=== PATIENT | male | born 1945 | race Caucasian/White ===

== ENCOUNTER 2021-05-28 12:55 | Inpatient (IN) | payer MEDICARE, SELFPAY ==
[2021-05-27] VITALS (13 sets, daily range): BP systolic 87–156; BP diastolic 46–82; PULSE 48–109; RESP 15–21; TEMP 37.3–37.7; O2SAT 96–100; BMI 34.0
--- NOTE | 2021-05-27 10:08 | WPDCNINT ---
Assessment and Plan Assessment and plan (1) Sepsis: Code(s): A41.9 - Sepsis, unspecified organism Status: Acute Assessment and Plan: on review of his chart and physician sign-out it appears the patient presented with mixed picture of sepsis and DKA he had elevated lactic acid level elevated WBC and infiltraes on his chest x-ray patient was given vancomycin and Rocephin in the ER and culture sent I will continue vancomycin and cefepime continue IV fluids he has received adequate amount IV bolus and currently not requiring any vasopressors check lactic acid level (2) DKA (diabetic ketoacidosis): Code(s): E11.10 - Type 2 diabetes mellitus with ketoacidosis without coma Status: Acute Assessment and Plan: patient has received IV fluid bolus and insulin bolus in the ED continue IV insulin infusion serial BMPs with 1st now NPO except water (3) Acute kidney injury superimposed on CKD: Code(s): N17.9 - Acute kidney failure, unspecified; N18.9 - Chronic kidney disease, unspecified Status: Acute Assessment and Plan: baseline creatinine is unknown but patient presented with creatinine of 4.26 which has improved 3.7 this morning as per labs from outside hospital monitor urine output creatinine and electrolytes renal ultrasound CK was normal (4) COVID-19: Code(s): U07.1 - COVID-19 Status: Acute Assessment and Plan: currently on room air hence will hold dexamethasone not a candidate for remdesivir due to his renal failure isolation (5) Pneumonia: Code(s): J18.9 - Pneumonia, unspecified organism Status: Acute Assessment and Plan: patient chest x-ray on presentation showed bilateral infiltrates and he was recently diagnosed with COVID-19 currently on room air hence does not meet criteria for treatment for COVID-19 but he will be treated for bacterial infection culture sent in the ED vancomycin and cefepime (6) Nausea: Code(s): R11.0 - Nausea Status: Acute Assessment and Plan: p.r.n. Zofran (7) Atrial flutter: Code(s): I48.92 - Unspecified atrial flutter Status: Acute Assessment and Plan: patient has chronic AFib and is not on any anticoagulation as per patient's daughter check EKG check serial troponin add aspirin (8) Confusion: Code(s): R41.0 - Disorientation, unspecified Status: Acute Assessment and Plan: pressure patient has history of dementia. he is awake alert but not oriented and appears to have poor memory his ammonia was elevated I will repeat at this time also check TSH his head CT was negative at outside hospital (9) Delirium: Code(s): R41.0 - Disorientation, unspecified Status: Acute Assessment and Plan: likely delirium from sepsis and DKA check ammonia and TSH head CT was negative at outside hospital Additional Plan DVT prophylaxis - Lovenox Stress ulcer prophylaxis - Nutrition - NPO at this time Code Status - Full Code . patient unable to participate. Daughter will fax his advance directive to ICU. full code for now reviewed all the paperwork obtained from [facility], discussed case with transferring physician, called and spoke to patient's daughter and obtain additional information. I also updated her with patient's current status and our treatment plan.. I answered all her questions Total Critical Care Time - 45 minutes Due to a high probability of clinically significant, life threatening deterioration, the patient required my highest level of preparedness to intervene emergently and I personally spent this critical care time directly and personally managing the patient. This critical care time included obtaining a history; examining the patient; pulse oximetry; ordering and review of studies; arranging urgent treatment with development of a management plan; evaluation of patient's response to treatment;
[2021-05-27 10:49] LABS: Basophils Percent Auto 0.1 % (0.2-1.2); Hematocrit 31.6 % (42.0-52.0); Hemoglobin 11.1 g/dL (14.0-18.0); Immature Granulocyte Absolute 0.24 K/mm3 (0.00-0.031); Immature Granulocyte Percent A 1.6 % (0-0.5); Lymphocytes Absolute Auto 0.87 K/mm3 (0.9-3.2); Lymphocytes Percent Auto 5.8 % (18.3-44.2); Mean Corpuscular HGB Conc 35.1 g/dl (32-36); Mean Corpuscular Hemoglobin 32.2 pg (26-34); Mean Corpuscular Volume 91.6 fl (80-100); Mean Platelet Volume 8.5 fl (7.4-10.4); Monocytes Absolute Auto 0.9 K/mm3 (0.1-0.6); Monocytes Percent Auto 6.1 % (2.6-8.5); Neutrophils Absolute Auto 12.9 K/mm3 (1.3-6.7); Neutrophils Percent Auto 86.4 % (45.5-73.1); Platelet Count Result 256 k/mm3 (150-375); Red Blood Count 3.45 M/mm3 (4.6-6.20); Red Cell Distribution Width 12.8 % (11.5-14.5)
[2021-05-27 11:00] LABS: Ammonia < 9 umol/L (9-30); Lactic Acid Reflex 1.2 mmol/L (0.7-2.1)
[2021-05-27 11:01] LABS: Anion Gap 7 mmol/L (8-16); Blood Urea Nitrogen 58 mg/dL (9-20); Calcium 9.7 mg/dL (8.4-10.2); Carbon Dioxide 29 mmol/L (22-30); Chloride 106 mmol/L (98-107); Estimated Glomerular Filt Rate 23; Glucose 121 mg/dL (65-110); Magnesium 2.3 mg/dL (1.6-2.3); Phosphorus 2.4 mg/dL (2.5-4.5); Potassium 4.1 mmol/L (3.4-5.0); Sodium 142 mmol/L (137-145)
[2021-05-27 11:01] LABS: Glucose Point of Care 102 mg/dl (65-105)
[2021-05-27 11:10] LABS: Hemoglobin A1C 9.4 % (<5.7)
[2021-05-27 11:19] LABS: Add Urine Microscopic? YES; Appearance Urine Cloudy (Clear); Bacteria Urine Trace /hpf; Bilirubin Urine Negative (Negative); Blood Urine 3+ (Negative); Color Urine Yellow (Yellow); Glucose Urine UA 3+ mg/dL (Negative); Ketones Urine 1+ mg/dL (Negative); Leukocyte Esterase Ur Negative LEU/UL (NEGATIVE); Mucus Urine Rare /lpf; Nitrate Urine Negative (Negative); Protein Urine 1+ mg/dL (Negative); Squamous Epithelial Cell Urine Occasional /hpf (Few); Urobilinogen Urine Negative mg/dL (<2.0)
--- NOTE | 2021-05-27 11:20 | PC.NURSE ---
This patient, Bernabe Juan, was admitted to Intensive Care Unit-8. Patient/family oriented to hospital policies and general routines including ID bracelet, bed and alarms, visiting hours, pain management, procedures, bathroom and other care routines, personal items, smoking policy, room service/diet, and visiting hours. Information on how to activate the Rapid Response Team has been discussed. Patient/Family are encouraged to report perceived risks to care and to ask questions if they do not understand what they are told or what they should do.
--- NOTE | 2021-05-27 11:38 | PM.IMHP ---
H&P: HPI History of Present Illness Date/Time: 05/27/21 11:38 Chief Complaint: Transferred From [facility] for DKA, sepsis Narrative: History was taken from the patient and transfer notes. According to the transfer notes, patient and patient family, patient has received his COVID vaccination in October and has recently be diagnosed with COVID and was getting close observation as an outpatient at home. No medication was given for this COVID exposure. Patient went to [place] emergency room yesterday with complaints of having high sugar. Patient was diagnosed with sepsis and DKA. Patient was given IV antibiotics vancomycin and IV fluid bolus was given. Patient was also found to be in having acute renal insufficiency. Patient also have a history of atrial fibrillation and was not on any anticoagulation at home. However home medications are not available at present time for review. At present time patient is in ICU bed 8 lying comfortably and is not in any acute distress. Patient denies any shortness of breath or chest pain. Patient denies any nausea vomiting. Patient denies any fever or chills. Patient complains of having generalized weakness. Daughter was contacted by ICU attending and notified the patient is in [facility] ICU. Review of Systems Review of Systems: All systems reviewed & are unremarkable except as noted in HPI and below ( the history and physical examination.) [facility] Past Medical History Medical History Atrial flutter Diabetes mellitus DKA (diabetic ketoacidosis) Social History Social History Smoking status: Former smoker Alcohol intake: never Substance use: never Spiritual care concerns: No Meds Home Medications and Allergies Home Medications Medication Instructions Recorded Confirmed Type apixaban [Eliquis] 5 mg PO BID 05/27/21 05/27/21 History bethanechol chloride 10 mg PO TID 05/27/21 05/27/21 History brimonidine-timolol [Combigan] 1 drp EACH EYE Q12H 05/27/21 05/27/21 History carvedilol [Coreg] 3.125 mg PO Q12H 05/27/21 05/27/21 History empagliflozin [Jardiance] 10 mg PO DAILY 05/27/21 05/27/21 History furosemide [Lasix] 20 mg PO DAILY 05/27/21 05/27/21 History insulin lispro [Humalog U-100 See Rx Instructions .ROUTE .COMPLEX 05/27/21 05/27/21 History Insulin] levothyroxine 150 mcg PO DAILY 05/27/21 05/27/21 History lisinopril 5 mg PO DAILY 05/27/21 05/27/21 History pantoprazole [Protonix] 40 mg PO QAM 05/27/21 05/27/21 History rosuvastatin [Crestor] 40 mg PO DAILY 05/27/21 05/27/21 History tamsulosin 0.4 mg PO DAILY 05/27/21 05/27/21 History Allergies Allergy/AdvReac Type Severity Reaction Status Date / Time No Known Allergies Allergy Verified 05/27/21 10:41 Exam Narrative: General: Pt is alert awake and in NAD Lungs/Chest: Trachea central Clear BS B/L, No crackles or wheezing. Cardiac: RRR. Normal S1 S2. No murmurs Circulation: Pedal pulses are intact and symmetrical. Abdomen: Normal bowel sounds.. Soft. NT. ND. Extremities: No clubbing, cyanosis or edema. Warm left femoral central venous catheter : Eng in place Neurologic: Follows commands. Moves all 4 extremities PERRL alert oriented times 0 Skin: No Rash H&P: Results Labs Labs: Short CBC 05/27/21 Range/Units 10:35 WBC 15.0 H (4.5-10.0) K/mm3 Hgb 11.1 L (14.0-18.0) g/dL Hct 31.6 L (42.0-52.0) % Plt Count 256 (150-375) k/mm3 BMP 05/27/21 10:35 Sodium 142 Potassium 4.1 Chloride 106 Carbon Dioxide 29 BUN 58 H Creatinine 2.70 H Glucose 121 H Calcium 9.7 Cardiac Enzymes 05/27/21 Range/Units 10:40 Troponin I 1.410 H* (0.000-0.034) ng/mL Urine 05/27/21 Range/Units 10:50 Urine Color Yellow (Yellow) Urine Appearance Cloudy H (Clear) Urine pH 5.0 (5.0-9.0) Ur Specific [place] 1.010 (1.001-1.035) Urine Protein
[2021-05-27] MEDS: SODIUM CHLORIDE 0.45% 1,000 ML 100 ML IV CONT ×2 (13:23→22:49)
[2021-05-27] MEDS: INSULIN GLARGINE (*BKC) 100 UNITS/ML 15 UNITS SUB-Q (13:26)
[2021-05-27] MEDS: carvediloL 3.125 MG TABLET PO ×2 (13:29→20:04)
[2021-05-27] MEDS: PANTOPRAZOLE 40 MG TABLET PO (13:29)
[2021-05-27] MEDS: ROSUVASTATIN 10 MG TABLET 40 MG PO (13:29)
[2021-05-27] MEDS: BETHANECHOL CHLORIDE 10 MG TABLET PO (13:30)
[2021-05-27] MEDS: TAMSULOSIN HCL 0.4 MG CAPSULE PO (13:30)
[2021-05-27 13:41] LABS: Anion Gap 11 mmol/L (8-16); Blood Urea Nitrogen 56 mg/dL (9-20); Calcium 9.3 mg/dL (8.4-10.2); Carbon Dioxide 26 mmol/L (22-30); Chloride 106 mmol/L (98-107); Estimated CRCL calculation 32 ml/min; Estimated Glomerular Filt Rate 26; Glucose 166 mg/dL (65-110); Potassium 4.5 mmol/L (3.4-5.0); Sodium 143 mmol/L (137-145)
[2021-05-27] MEDS: CENTRAL LINE FLUSH 10 ML IV PUSH ×3 (13:55→20:15)
[2021-05-27 14:01] LABS: Glucose Point of Care 157 mg/dl (65-105)
[2021-05-27] MEDS: APIXABAN 5 MG TABLET PO (16:38)
[2021-05-27] MEDS: INSULIN ASPART (*BKC) 100 UNITS/ML SUB-Q ×3 (16:39→23:53)
[2021-05-27 16:47] LABS: Glucose Point of Care 305 mg/dl (65-105)
[2021-05-27] MEDS: LORazepam INJ (*CRX) 2 MG/ML VIAL 1 MG IV PUSH (17:36)
[2021-05-27] MEDS: dexmedeTOMIDine 400 MCG/100 ML 400 MCG/100 ML BAG 6 MCG IV CONT (17:55)
[2021-05-27 18:08] LABS: Anion Gap 16 mmol/L (8-16); Blood Urea Nitrogen 53 mg/dL (9-20); Calcium 8.9 mg/dL (8.4-10.2); Carbon Dioxide 20 mmol/L (22-30); Chloride 104 mmol/L (98-107); Estimated CRCL calculation 37 ml/min; Estimated Glomerular Filt Rate 31; Glucose 307 mg/dL (65-110); Potassium 4.2 mmol/L (3.4-5.0); Sodium 140 mmol/L (137-145)
[2021-05-27] MEDS: BRIMONIDINE TARTRATE 0.2% OP SOLN 5 ML BTL 1 DROP EACH EYE (20:04)
[2021-05-27] MEDS: TIMOLOL MALEATE 0.5% OP SOLN 5 ML BOTTLE 1 DROP EACH EYE (20:07)
[2021-05-27 20:31] LABS: Glucose Point of Care 258 mg/dl (65-105)
[2021-05-27 22:11] LABS: Anion Gap 9 mmol/L (8-16); Blood Urea Nitrogen 50 mg/dL (9-20); Calcium 9.3 mg/dL (8.4-10.2); Carbon Dioxide 26 mmol/L (22-30); Chloride 105 mmol/L (98-107); Estimated CRCL calculation 35 ml/min; Estimated Glomerular Filt Rate 29; Glucose 241 mg/dL (65-110); Sodium 140 mmol/L (137-145)
[2021-05-27] MEDS: dexmedeTOMIDine 400 MCG/100 ML 400 MCG/100 ML BAG 12 MCG IV CONT (23:51)
[2021-05-28] VITALS (16 sets, daily range): BP systolic 104–175; BP diastolic 54–91; PULSE 36–71; RESP 14–22; TEMP 35.7–36.6; O2SAT 97–100; BMI 35.2
[2021-05-28] LABS: Glucose Point of Care 214 mg/dl (65-105)
--- NOTE | 2021-05-28 | ECHO_ITS ---
Patient Info Name: Bernabe Juan Age: 75 years : 1945 Gender: Male Ht: 74 in Wt: 260 lbs BSA: 2.52 m2 HR: 52 bpm BP: 153 / 88 mmHg Heart Rhythm: Atrial Fibrillation Exam Date: 05/28/2021 8:17 AM Exam Location: [facility] Pulmonary Patient Status: Inpatient Admit Date: 05/27/2021 Staff Ordering Physician: Brad Patterson MD Fitness/Wellness Director: Ronan Vasquez, DURAN, RT Attending Provider: Layo Rodriguez MD Exam Type: CA echo doppler color flow Study Info Indications R65.20 - Severe sepsis without septic shock Complete two-dimensional, color flow and Doppler transthoracic echocardiogram is performed. Strain analysis performed. Summary 1. Complete two-dimensional, color flow and Doppler transthoracic echocardiogram is performed. 2. Left ventricular chamber dimension is mildly enlarged. 3. Left ventricular systolic function is mildly reduced, estimated at 40-45%. 4. Left atrial chamber dimension is moderately enlarged. 5. There is mild aortic valve sclerosis. 6. Small amount of both mitral and tricuspid valve regurgitation. Left Ventricle Left ventricular chamber dimension is mildly enlarged. Left ventricular systolic function is mildly reduced, estimated at 40-45%. The left ventricular diastolic function is indeterminate. Right Ventricle Right ventricular chamber dimension is normal. Left Atria Left atrial chamber dimension is moderately enlarged. Right Atria Right atrial chamber dimension is mildly enlarged. Aortic Valve The aortic valve is trileaflet. There is mild aortic valve sclerosis. Pulmonic Valve The pulmonic valve is not well visualized. Mitral Valve The mitral valve has normal leaflets. There is mild mitral valve regurgitation. The mitral valve annulus is mildly calcified. Tricuspid Valve The tricuspid valve leaflets are normal. There is mild tricuspid valve regurgitation. Pericardium/Pleural The pericardium appears normal. Aorta The aortic root size at the sinus of Valsalva is normal. Left Ventricular Outflow Tract Name Value Normal LVOT Doppler LVOT Peak Gradient 1 mmHg LVOT Mean Gradient 1 mmHg LVOT VTI 16 cm LVOT VTI/AV VTI Ratio 0.8 Mitral Valve Name Value Normal MV Doppler MV Decel [place] 169 cm/s2 MV PHT 122 ms MV Area (PHT) 1.8 cm2 4.0-5.0 MV Diastolic Function MV E Peak Velocity 71 cm/s MV A Peak Velocity 41 cm/s MV E/A 1.8 MV Decel Time 420 ms MV Annular TDI MV E/e' (Septal) 12.1 <=8.0 MV E
--- NOTE | ~2021-05-28 | XR_ITS ---
EXAMINATION: Consultation XR EXAM DATE: 05/27/2021 11:16 INDICATION: Outside consultation requested for imaging including a portable chest x-ray and noncontra st head CT. Both have time stamp of 05/26/2021, 3:28 p.m. Portable chest x-ray demonstrates mild cardiomegaly and small amount of left basilar atelectasis or p neumonia. Noncontrast head CT demonstrates slightly higher than expected density throughout the CSF spaces, yue tricles and subarachnoid spaces. Uncertain whether this could be something technical with equipment I am unfamiliar with, with other possibilities including recent myelogram, proteinaceous fluid (from i nfection, inflammatory process or old subarachnoid blood products). Mild microangiopathy and moderate cerebral atrophy. No obstructive hydrocephalus, evidence of brain mass, acute extra-axial collection or intracranial hemorrhage. Reviewed, dictated and finalized at location A.
--- NOTE | ~2021-05-28 | US_ITS ---
EXAMINATION: US renal BI DATE: 05/27/2021 12:43 INDICATION: Acute renal insufficiency TECHNIQUE: Multiple ultrasound grayscale images of the kidneys were obtained. COMPARISON: None. FINDINGS: The right kidney measures 11.8 x 5.8 x 6.0 cm. The left kidney measures 11.2 x 4.9 x 6.1 cm. The kidn eys demonstrate normal echogenicity. There is approximately 2.4 cm subtle hypoechoic region in the co rtex of the lower pole of the right kidney which on cine images appears most likely related to some s hadowing artifact resulting nodule cannot be absolutely excluded. There is no hydronephrosis in eithe r kidney. No stones identified. The bladder is nonvisualized, likely decompressed with a Eng mansoor ter reportedly in place.. IMPRESSION: 1. No hydronephrosis. 2. Likely artifactual 2.4 cm region of decreased cortical echogenicity at the lower pole of the right kidney but would recommend further evaluation with pre and postcontrast MRI or CT to exclude a less likely solid nodule which if confirmed would be concerning for renal cell carcinoma. Reviewed, dictated and finalized at location A. IMPRESSION: 1. No hydronephrosis. 2. Likely artifactual 2.4 cm region of decreased cortical echogenicity at the l ower pole of the right kidney but would recommend further evaluation with pre a nd postcontrast MRI or CT to exclude a less likely solid nodule which if confir med would be concerning for renal cell carcinoma.
--- NOTE | ~2021-05-28 | XR_ITS ---
XR chest 1V portable 05/30/2021 08:57 Indication: Pneumonia Procedure: AP portable chest Comparison: 05/26/2021 Findings: Interval progression of patchy bilateral airspace disease, consistent with pneumonia. No si gnificant effusion. No pneumothorax. No acute osseous abnormality. Impression: 1: Interval progression of patchy bilateral pneumonia. Reviewed, dictated and finalized at location A. Impression: 1: Interval progression of patchy bilateral pneumonia.
[2021-05-28] MEDS: CENTRAL LINE FLUSH 10 ML IV PUSH ×3 (04:31→20:43)
[2021-05-28 04:47] LABS: Glucose Point of Care 180 mg/dl (65-105)
[2021-05-28 04:52] LABS: Hematocrit 32.9 % (42.0-52.0); Hemoglobin 11.5 g/dL (14.0-18.0); Mean Corpuscular Hemoglobin 32.5 pg (26-34); Mean Corpuscular Volume 92.9 fl (80-100); Mean Platelet Volume 8.8 fl (7.4-10.4); Platelet Count Result 234 k/mm3 (150-375); Red Blood Count 3.54 M/mm3 (4.6-6.20); Red Cell Distribution Width 12.9 % (11.5-14.5); White Blood Count 15.9 K/mm3 (4.5-10.0)
[2021-05-28 05:07] LABS: Alanine Aminotransferase 23 U/L (4-50); Albumin Level 3.1 g/dL (3.5-5.1); Alkaline Phosphatase 129 U/L (38-126); Anion Gap 9 mmol/L (8-16); Aspartate Amino Transferase 56 U/L (17-59); Bilirubin,Total 0.5 mg/dL (0.2-1.3); Blood Urea Nitrogen 44 mg/dL (9-20); Calcium 9.1 mg/dL (8.4-10.2); Carbon Dioxide 28 mmol/L (22-30); Chloride 103 mmol/L (98-107); Estimated CRCL calculation 41 ml/min; Estimated Glomerular Filt Rate 35; Glucose 207 mg/dL (65-110); Magnesium 2.2 mg/dL (1.6-2.3); Sodium 140 mmol/L (137-145)
[2021-05-28] MEDS: LEVOTHYROXINE SODIUM 150 MCG TABLET PO (06:15)
[2021-05-28] MEDS: SODIUM CHLORIDE 0.45% 1,000 ML 100 ML IV CONT (08:33)
[2021-05-28] MEDS: INSULIN GLARGINE (*BKC) 100 UNITS/ML 15 UNITS SUB-Q ×2 (08:33→10:41)
[2021-05-28] MEDS: ASPIRIN 325 MG TABLET PO (08:34)
[2021-05-28] MEDS: PANTOPRAZOLE 40 MG TABLET PO (08:36)
[2021-05-28] MEDS: APIXABAN 5 MG TABLET PO ×2 (08:36→17:23)
[2021-05-28] MEDS: TAMSULOSIN HCL 0.4 MG CAPSULE PO (08:36)
[2021-05-28] MEDS: BRIMONIDINE TARTRATE 0.2% OP SOLN 5 ML BTL 1 DROP EACH EYE ×2 (08:36→20:42)
[2021-05-28] MEDS: TIMOLOL MALEATE 0.5% OP SOLN 5 ML BOTTLE 1 DROP EACH EYE ×2 (08:36→20:42)
[2021-05-28] MEDS: ROSUVASTATIN 10 MG TABLET 40 MG PO (08:36)
[2021-05-28] MEDS: BETHANECHOL CHLORIDE 10 MG TABLET PO ×3 (08:36→17:22)
--- NOTE | 2021-05-28 08:40 | PM.CNCAR ---
Assessment and Plan Additional Plan This is a 75-year-old man with: Elevated troponin level this is example of so-called type 2 myocardial infarction which is related in this case obviously by the acidemia and metabolic derangements attended to diabetic ketoacidosis. Did not have any clinical complaints that would raise concern regarding an acute coronary syndrome. The patient is more oriented today and is able to tell me that his atrial fibrillation is known to be chronic he has a child specialist at [facility] with whom I am well acquainted. He does not have any other cardiac issues as far as I can tell. Looks like an echocardiogram has been done this morning of course that has yet to be read. At this point I do not anticipate any specific ischemia workup. We will follow him with you during this hospitalization Marito Douglas MD [facility] History of Present Illness History of Present Illness Consult date/time: 05/28/21 08:40 Consult reason: atrial fibrillation Reason For Visit: COVID, Pneumonia, DKA, Sepsis Narrative: This is a 75-year-old man I am seeing this morning at the request of the hospitalist because of elevated troponin levels he and on the basis of this he was given the diagnosis of NSTEMI. He is unknown to me prior to this encounter. He is being seen in ICU room 8. He is comfortable cooperative and seems to be relatively coherent this morning which was apparently not the case yesterday upon admission to [facility]. He was sent here from [facility] for treatment of diabetic ketoacidosis requiring ICU level care and there was no ICU bed available at that facility. He was not reporting any symptoms of chest pain pressure or heaviness apparently when he got here at [facility] he was oriented only to self and otherwise did not appear to be having any clinical evidence of an acute coronary syndrome. Troponin levels were moderately elevated at 1.4 with a slightly downward trend and because of this I was asked to see him in consultation. The patient is in atrial fibrillation and has a controlled ventricular response his cording to his home medication list he is anticoagulated with apixaban. He is more oriented this morning I presumably as his acidosis has improved. He is able to tell me that he is known to have chronic atrial fibrillation he follows with a child specialist at [facility], Dr. Cavazos. He states that he is not aware of any other cardiac problems other than atrial fib and specifically denies any knowledge of coronary disease, previous coronary interventions or concern on the part of his child specialist of an ischemic problem. Apparently he has longstanding diabetes and has had a number of admissions with ketoacidosis. 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 Review of Systems Constitutional: Constitutional: Reports fatigue Eyes: Eyes: Reports no additional eye complaints ENT: Reports system reviewed and no additional complaints, except as documented Cardiovascular: Cardiovascular: Reports no additional cardiovascular complaints Respiratory: Respiratory: Reports no additional respiratory complaints Gastrointestinal: Gastrointestinal: Reports no additional gastrointestinal complaints Musculoskeletal: Musculoskeletal: Reports arthralgias Integumentary/Breasts: Skin/Breast: Reports system reviewed and no additional complaints, except as docu Neurologic: Reports system reviewed and no additional complaints, except as documented Endocrine: Endocrine: Reports no additional endocrine complaints Hematologic/Lymphatic: Hematologic/Lymphatic: Reports no additional hematologic/lymphatic complaints Allergic/Immunologic: Allergic/Immunologic: Reports no additional allergic/immunologic complaints PMFSH Past Medical History Medical History Atrial flutter Diabetes mellitus DKA (diabetic ketoacidosis)
[2021-05-28] MEDS: INSULIN ASPART (*BKC) 100 UNITS/ML SUB-Q ×2 (08:49→13:00)
[2021-05-28 09:04] LABS: Glucose Point of Care 276 mg/dl (65-105)
--- NOTE | 2021-05-28 09:07 | WPDINTPN ---
Progress Note: A&P Assessment and Plan (1) Sepsis: Code(s): A41.9 - Sepsis, unspecified organism Status: Acute Assessment and Plan: on review of his chart and physician sign-out it appears the patient presented with mixed picture of sepsis and DKA he had elevated lactic acid level elevated WBC and infiltraes on his chest x-ray cultures are pending I will continue vancomycin and cefepime continue IV fluids he has received adequate amount IV bolus and currently not requiring any vasopressors lactic acid level has normalized (2) DKA (diabetic ketoacidosis): Code(s): E11.10 - Type 2 diabetes mellitus with ketoacidosis without coma Status: Acute Assessment and Plan: patient has received IV fluid bolus and insulin bolus in the ED anion gap has closed and patient has been transition to subcutaneous insulin advance diet (3) Acute kidney injury superimposed on CKD: Code(s): N17.9 - Acute kidney failure, unspecified; N18.9 - Chronic kidney disease, unspecified Status: Acute Assessment and Plan: baseline creatinine is unknown but patient presented with creatinine of 4.26 creatinine is improving and is down to 1.9 today good urine output monitor urine output creatinine and electrolytes renal ultrasound reviewed and shows no hydronephrosis CK was normal (4) COVID-19: Code(s): U07.1 - COVID-19 Status: Acute Assessment and Plan: currently on room air hence will hold dexamethasone not a candidate for remdesivir due to his renal failure isolation (5) Pneumonia: Code(s): J18.9 - Pneumonia, unspecified organism Status: Acute Assessment and Plan: patient chest x-ray on presentation showed bilateral infiltrates and he was recently diagnosed with COVID-19 currently on room air hence does not meet criteria for treatment for COVID-19 but he will be treated for bacterial infection culture sent in the ED vancomycin and cefepime (6) Nausea: Code(s): R11.0 - Nausea Status: Acute Assessment and Plan: resolved p.r.n. Zofran (7) Atrial flutter: Code(s): I48.92 - Unspecified atrial flutter Status: Acute Assessment and Plan: patient has chronic AFib and is not on any anticoagulation as per patient's daughter check EKG check serial troponin add aspirin (8) Delirium: Code(s): R41.0 - Disorientation, unspecified Status: Acute Assessment and Plan: likely delirium from sepsis and DKA appears to have resolved as patient is now alert oriented x3 Precedex has been discontinued monitor normal ammonia and TSH head CT was negative at outside hospital (9) Atrial fibrillation: Code(s): I48.91 - Unspecified atrial fibrillation Status: Acute Assessment and Plan: patient has chronic AFib and is not on any anticoagulation as per patient's daughter rate is controlled continue Eliquis and Coreg (10) NSTEMI (non-ST elevated myocardial infarction): Code(s): I21.4 - Non-ST elevation (NSTEMI) myocardial infarction Status: Acute Assessment and Plan: patient was seen by cardiology troponin level is trending down and he is chest pain-free likely type 2 non STEMI echo is pending continue aspirin beta-bethany, Eliquis and statin Hiro inhibitors on hold due to renal failure Additional Plan DVT prophylaxis - Lovenox Nutrition - diabetic diet Code Status - Full Code . PT OT, IS, up in chair transfer out of ICU today Subjective Date/time seen: 05/28/21 09:07 last night patient was agitated and pulling on lines and tubes and has patient was started on Precedex infusion. Precedex infusion was held this morning patient is much more awake and alert today. He denies any complaints at this time and is not sure why he is in the hospital. Explaining that he had DKA and then he told me that he has had similar admissions in the past.
--- NOTE | 2021-05-28 10:28 | PCOTNOTE ---
Attempted OT evaluation, patient currently has a femoral line in place, will follow and attempt when line is removed.
--- NOTE | 2021-05-28 10:29 | PCPTNOTE ---
Initiated PT eval. PT on hold due to femoral line. Will try again at later time.
[2021-05-28] MEDS: ONDANSETRON INJ 4 MG/2 ML VIAL IV PUSH (10:41)
[2021-05-28 13:05] LABS: Glucose Point of Care 214 mg/dl (65-105)
--- NOTE | 2021-05-28 16:15 | PC.NURSE ---
This patient, Bernabe Juan, was transferred to [ [id number]] on 05/28/21 at 1600. Personal belongings sent with patient. Report given to [BIBI Barber @ [phone] ]. Appropriate documentation sent with patient.
--- NOTE | 2021-05-28 16:51 | PM.IMPN ---
Progress Note: A&P Assessment and Plan (1) Sepsis: Code(s): A41.9 - Sepsis, unspecified organism Status: Acute Assessment and Plan: Continue vancomycin and cefepime and fluids (2) DKA (diabetic ketoacidosis): Code(s): E11.10 - Type 2 diabetes mellitus with ketoacidosis without coma Status: Acute Assessment and Plan: Continue to monitor sugars, accuchecks, SSI (3) Acute kidney injury superimposed on CKD: Code(s): N17.9 - Acute kidney failure, unspecified; N18.9 - Chronic kidney disease, unspecified Status: Acute Assessment and Plan: baseline creatinine is unknown but patient presented with creatinine of 4.26 which has improved 1.9 with fluids renal ultrasound CK was normal (4) COVID-19: Code(s): U07.1 - COVID-19 Status: Acute Assessment and Plan: currently on room air not a candidate for remdesivir due to his renal failure On isolation, Suportive care for COVID (5) Pneumonia: Code(s): J18.9 - Pneumonia, unspecified organism Status: Acute Assessment and Plan: On vancomycin and cefepime for bacterial PNEUMONIA (6) Nausea: Code(s): R11.0 - Nausea Status: Acute Assessment and Plan: p.r.n. Zofran (7) Atrial flutter: Code(s): I48.92 - Unspecified atrial flutter Status: Acute Assessment and Plan: patient has chronic AFib (8) Confusion: Code(s): R41.0 - Disorientation, unspecified Status: Acute Assessment and Plan: pressure patient has history of dementia. But is alert (9) Delirium: Code(s): R41.0 - Disorientation, unspecified Status: Resolved Assessment and Plan: Yesterday was very confused and agitated now more calm head CT was negative at outside hospital Additional Plan Subjective Date/time seen: 05/28/21 16:51 Interval history: Patient went to [place] emergency room yesterday with complaints of having high sugar. Patient was diagnosed with sepsis and DKA. Patient was given IV antibiotics vancomycin and IV fluid bolus was given. Patient was also found to be in having acute renal insufficiency. Pt is being treated for DKA, sepsis and COVId infection. PT was slightly agitated last night more calm now. Review of Systems Review of Systems: All systems reviewed & are unremarkable except as noted in HPI and below Exam Narrative: General: Pt is alert awake well appearing Lungs/Chest: No respiratory distress Cardiac: RRR. Abdomen: Soft NT Extremities: No clubbing, cyanosis or edema. : Eng in place Neurologic: Follows commands. Moves all 4 extremities PERRL alert oriented times 0 Objective Data Vital Signs Vital Signs: Vital Signs - 24 hr 05/27/21 17:55 05/27/21 18:00 05/27/21 19:35 Temperature Pulse Rate 105 H 64 62 Respiratory Rate 18 21 H 18 Blood Pressure 134/62 Pulse Oximetry 96 05/27/21 20:00 05/27/21 20:04 05/27/21 21:25 Temperature 37.3 C Pulse Rate 62 62 62 Respiratory Rate 19 19 Blood Pressure 87/65 L Pulse Oximetry 100 05/27/21 22:00 05/27/21 23:51 05/28/21 00:00 Temperature 36.6 C Pulse Rate 49 L 48 L 46 L Respiratory Rate 18 18 18 Blood Pressure 156/82 H 147/71 H Pulse Oximetry 97 99 05/28/21 01:02 05/28/21 02:00 05/28/21 02:52 Temperature Pulse Rate 40 L 63 39 L Respiratory Rate 18 22 H 17 Blood Pressure 147/86 H Pulse Oximetry 98 05/28/21 04:00 05/28/21 04:35 05/28/21 06:00 Temperature 36.6 C Pulse Rate 55 L 60 36 L Respiratory Rate 17 14 17 Blood Pressure 175/91 H 153/88 H Pulse Oximetry 98 97 05/28/21 08:00 05/28/21 10:00 05/28/21 12:00 Temperature 36.0 C L 35.7 C L Pulse Rate 59 L 36 L 43 L Respiratory Rate 16 14 14 Blood Pressure 142/68 H 156/69 H 129/68 Pulse Oximetry 98 98 100 05/28/21 14:00 05/28/21 16:14 Temperature 36.6 C Pulse Rate 55 L 62 Respiratory Rate 21 H Blood Pressure
[2021-05-28 17:33] LABS: Glucose Point of Care 175 mg/dl (65-105)
[2021-05-28 20:29] LABS: Glucose Point of Care 174 mg/dl (65-105)
[2021-05-28] MEDS: SODIUM CHLORIDE 0.45% 1,000 ML 50 ML IV CONT (23:44)
[2021-05-29] VITALS (10 sets, daily range): BP systolic 99–122; BP diastolic 47–65; PULSE 62–66; RESP 16–20; TEMP 35.8–36.6; O2SAT 95–99
[2021-05-29 05:08] LABS: Hematocrit 35.4 % (42.0-52.0); Hemoglobin 12.2 g/dL (14.0-18.0); Mean Corpuscular HGB Conc 34.5 g/dl (32-36); Mean Corpuscular Hemoglobin 31.6 pg (26-34); Mean Corpuscular Volume 91.7 fl (80-100); Mean Platelet Volume 8.8 fl (7.4-10.4); Platelet Count Result 233 k/mm3 (150-375); Red Blood Count 3.86 M/mm3 (4.6-6.20); Red Cell Distribution Width 13.1 % (11.5-14.5); White Blood Count 10.4 K/mm3 (4.5-10.0)
[2021-05-29 05:25] LABS: Alanine Aminotransferase 27 U/L (4-50); Albumin Level 2.9 g/dL (3.5-5.1); Alkaline Phosphatase 125 U/L (38-126); Anion Gap 4 mmol/L (8-16); Aspartate Amino Transferase 54 U/L (17-59); Bilirubin,Total 0.5 mg/dL (0.2-1.3); Blood Urea Nitrogen 35 mg/dL (9-20); Calcium 8.9 mg/dL (8.4-10.2); Carbon Dioxide 30 mmol/L (22-30); Chloride 103 mmol/L (98-107); Estimated CRCL calculation 52 ml/min; Estimated Glomerular Filt Rate 45; Glucose 136 mg/dL (65-110); Magnesium 2.2 mg/dL (1.6-2.3); Sodium 137 mmol/L (137-145)
[2021-05-29] MEDS: LEVOTHYROXINE SODIUM 150 MCG TABLET PO (05:27)
[2021-05-29] MEDS: CENTRAL LINE FLUSH 10 ML IV PUSH (05:27)
[2021-05-29 08:22] LABS: Glucose Point of Care 131 mg/dl (65-105)
[2021-05-29] MEDS: TAMSULOSIN HCL 0.4 MG CAPSULE PO (08:34)
[2021-05-29] MEDS: BRIMONIDINE TARTRATE 0.2% OP SOLN 5 ML BTL 1 DROP EACH EYE ×2 (08:34→22:14)
[2021-05-29] MEDS: TIMOLOL MALEATE 0.5% OP SOLN 5 ML BOTTLE 1 DROP EACH EYE ×2 (08:34→22:14)
[2021-05-29] MEDS: APIXABAN 5 MG TABLET PO ×2 (08:34→17:00)
[2021-05-29] MEDS: PANTOPRAZOLE 40 MG TABLET PO (08:34)
[2021-05-29] MEDS: ASPIRIN 325 MG TABLET PO (08:34)
[2021-05-29] MEDS: INSULIN GLARGINE (*BKC) 100 UNITS/ML 30 UNITS SUB-Q (08:34)
[2021-05-29] MEDS: ROSUVASTATIN 10 MG TABLET 40 MG PO (08:34)
[2021-05-29] MEDS: BETHANECHOL CHLORIDE 10 MG TABLET PO ×3 (08:34→17:00)
--- NOTE | 2021-05-29 09:04 | PM.PNCARD ---
Progress Note: A&P Assessment and Plan (1) NSTEMI (non-ST elevated myocardial infarction): Code(s): I21.4 - Non-ST elevation (NSTEMI) myocardial infarction Status: Acute Assessment and Plan: Elevated troponin level this is example of so-called type 2 myocardial infarction which is related in this case obviously by the acidemia and metabolic derangements attended to diabetic ketoacidosis. Did not have any clinical complaints that would raise concern regarding an acute coronary syndrome. Continues to deny any chest pain. Echocardiogram from yesterday showed moderately reduced left ventricular systolic function with ejection fraction of 40-45%. No significant valve pathology. (2) Atrial fibrillation: Code(s): I48.91 - Unspecified atrial fibrillation Status: Acute Assessment and Plan: Chronic atrial fibrillation that is managed by Dr. Cavazos at [facility]. Rate controlled and anticoagulated with apixaban. Subjective Date/time seen: 05/29/21 09:05 Cardiology follow up Date of service 05/29/2021: He is feeling well today. Denies complaints of any kind. Has been out of bed today. In says that he felt a little weak and shaky but otherwise is doing okay. Denies any shortness of breath, palpitations, chest pain. Review of Systems Constitutional: Constitutional: Reports fatigue Eyes: Eyes: Reports no additional eye complaints ENT: Reports system reviewed and no additional complaints, except as documented Cardiovascular: Cardiovascular: Reports no additional cardiovascular complaints Respiratory: Respiratory: Reports no additional respiratory complaints Gastrointestinal: Gastrointestinal: Reports no additional gastrointestinal complaints Musculoskeletal: Musculoskeletal: Reports arthralgias Integumentary/Breasts: Skin/Breast: Reports system reviewed and no additional complaints, except as docu Neurologic: Reports system reviewed and no additional complaints, except as documented Endocrine: Endocrine: Reports no additional endocrine complaints and Reports fatigue Hematologic/Lymphatic: Hematologic/Lymphatic: Reports no additional hematologic/lymphatic complaints Allergic/Immunologic: Allergic/Immunologic: Reports no additional allergic/immunologic complaints Exam Const: General: comfortable and no acute distress HENMT: Mouth: Yes moist mucous membranes Eyes: Sclera: sclerae normal Pupils: Equal, round and reactive pupils present Neck: Neck: supple and no JVD Resp: Effort & Inspection: normal respiratory effort Auscultation: clear to auscultation bilaterally Cardio: Rhythm: abnormal rhythm irregularly irregular GI: Auscultation: normal bowel sounds Skin: General skin exam: normal color Neuro: Cranial nerves: Yes Equal, round and reactive pupils present Cognition (Neuro): normal cognition Extrem: General: normal to inspection Objective Data Vital Signs Vital Signs: Vital Signs - 24 hr 05/28/21 10:00 05/28/21 12:00 05/28/21 14:00 Temperature 35.7 C L Pulse Rate 36 L 43 L 55 L Respiratory Rate 14 14 Blood Pressure 156/69 H 129/68 Pulse Oximetry 98 100 05/28/21 16:14 05/28/21 16:45 05/28/21 18:00 Temperature 36.6 C Pulse Rate 62 64 67 Respiratory Rate 21 H Blood Pressure 117/72 Pulse Oximetry 100 05/28/21 20:00 05/28/21 22:00 05/29/21 00:00 Temperature 36.6 C 36.1 C L Pulse Rate 63 63 62 Respiratory Rate 18 18 Blood Pressure 104/54 L 99/54 L Pulse Oximetry 99 96 05/29/21 02:00 05/29/21 04:00 05/29/21 06:00 Temperature 35.8 C L Pulse Rate 64 64 64 Respiratory Rate 20 Blood Pressure 122/65 Pulse Oximetry 97 05/29/21 08:00 Temperature 36.4 C Pulse Rate 64 Respiratory Rate 18 Blood Pressure 115/54 L Pulse Oximetry 97 Intake/Output Intake/Output: Intake & Output 05/26/21 05/27/21 05/28/21 05/29/21 23:59 23:59 23:59 23:59 Intake Total 1150 3335.8 275 Output Total 1850 2850 1600 Balance -700
--- NOTE | 2021-05-29 09:27 | PCDIET ---
Nutrition Follow-Up Complete: Nutrition Diagnosis: Inadequate oral intake related to DKA as evidenced by NPO diet. Nutrition Goal: Patient to meet estimated nutritional needs. Received voicemail from RN last night re: poor intake. Phoned patient who reports appetite is decreased. Average intake 45% on 05/28/21. Patient reports eating about half of pancake for breakfast. Agreeable to try Glucerna Shake (220kcal, 10g protein). Recommend sending TID with meals until intakes improve. Patient denies questions regarding diet or need for education/information. Last recorded weight is 114.1 kg which is significantly down from last review. -I/O. Will monitor. Bowel Motility: Last documented BM on 05/28/21 x 1. Labs Reviewed: WBC (10.4), RBC (3.86), Hgb (12.2), Hct (35.4), Glu (136), BUN (35), Cr (1.5), Alb (2.9) Meds Noted: Maxipime, Lantus, Synthroid, Protonix, Crestor, Vancomycin, 0.45NaCl at 50mL/hr Additional Notes: No pressure sores documented. Will continue to monitor with same goal. Nutrition Monitoring and Evaluation: Follow up in 5 days.
[2021-05-29 12:50] LABS: Glucose Point of Care 188 mg/dl (65-105)
--- NOTE | 2021-05-29 15:56 | PM.IMPN ---
Progress Note: A&P Assessment and Plan (1) Sepsis: Code(s): A41.9 - Sepsis, unspecified organism Status: Acute Assessment and Plan: Continue vancomycin and cefepime and fluids 05/29/21 15:56 patient is 75-year-old male was transferred from outside facility with COVID positive, a DKA, elevated potassium and elevated tropes patient was initially treated in ICU with IV fluid, IV insulin, sodium bicarb, this helped improve his blood sugar and lower his potassium, is elevated tropes patient was seen by Cardiology suspect type 2 myocardial infarction secondary to DKA, cardiac echo showed mild systolic dysfunction with ejection fraction of 45%, for COVID patient was not treated with dexamethasone due to DKA and cannot take remdesivir elevated creatinine, patient also found to have pneumonia being treated with a cefepime and vancomycin patient remains clinically stable on room air and no fever, may discharge the patient tomorrow if remains clinically stable. still remains somewhat confused unable to provide detailed review of symptom. (2) DKA (diabetic ketoacidosis): Code(s): E11.10 - Type 2 diabetes mellitus with ketoacidosis without coma Status: Acute Assessment and Plan: Continue to monitor sugars, accuchecks, SSI (3) Acute kidney injury superimposed on CKD: Code(s): N17.9 - Acute kidney failure, unspecified; N18.9 - Chronic kidney disease, unspecified Status: Acute Assessment and Plan: baseline creatinine is unknown but patient presented with creatinine of 4.26 which has improved 1.9 with fluids renal ultrasound CK was normal (4) COVID-19: Code(s): U07.1 - COVID-19 Status: Acute Assessment and Plan: currently on room air not a candidate for remdesivir due to his renal failure On isolation, Suportive care for COVID (5) Pneumonia: Code(s): J18.9 - Pneumonia, unspecified organism Status: Acute Assessment and Plan: On vancomycin and cefepime for bacterial PNEUMONIA (6) Nausea: Code(s): R11.0 - Nausea Status: Acute Assessment and Plan: p.r.n. Zofran (7) Atrial flutter: Code(s): I48.92 - Unspecified atrial flutter Status: Acute Assessment and Plan: patient has chronic AFib (8) Confusion: Code(s): R41.0 - Disorientation, unspecified Status: Acute Assessment and Plan: pressure patient has history of dementia. But is alert (9) Delirium: Code(s): R41.0 - Disorientation, unspecified Status: Resolved Assessment and Plan: Yesterday was very confused and agitated now more calm head CT was negative at outside hospital Additional Plan Subjective Date/time seen: 05/29/21 15:56 patient is 75-year-old male was transferred from outside facility with COVID positive, a DKA, elevated potassium and elevated tropes patient was initially treated in ICU with IV fluid, IV insulin, sodium bicarb, this helped improve his blood sugar and lower his potassium, is elevated tropes patient was seen by Cardiology suspect type 2 myocardial infarction secondary to DKA, cardiac echo showed mild systolic dysfunction with ejection fraction of 45%, for COVID patient was not treated with dexamethasone due to DKA and cannot take remdesivir elevated creatinine, patient also found to have pneumonia being treated with a cefepime and vancomycin patient remains clinically stable on room air and no fever, may discharge the patient tomorrow if remains clinically stable. still remains somewhat confused unable to provide detailed review of symptom. Review of Systems Review of Systems: ROS unobtainable: Yes unobtainable due to medical condition Exam Narrative: in early frail Patient is comfortable, NAD HEENT: eyes are clear and none icteric LUNGS: normal respiratory effort ABD: distended Lower extremities: no edema SKIN: nonjaundiced Neuro: somewhat confus
[2021-05-29] MEDS: INSULIN ASPART (*BKC) 100 UNITS/ML SUB-Q (17:02)
[2021-05-29 17:46] LABS: Glucose Point of Care 223 mg/dl (65-105)
--- NOTE | 2021-05-29 18:30 | PC.NURSE ---
This patient, Bernabe Juan, was transferred to [[id number]] on 05/29/21 at 1830. Personal belongings sent with patient. Report given to [Crystal MTZ]. Appropriate documentation sent with patient.
--- NOTE | 2021-05-29 18:42 | PC.NURSE ---
This patient, Bernabe Juan, was received from [ U ] on 05/29/21 at 1830. Patient/family oriented to unit policies and routines
[2021-05-29 23:32] LABS: Glucose Point of Care 150 mg/dl (65-105)
[2021-05-30] VITALS (8 sets, daily range): BP systolic 100–123; BP diastolic 55–66; PULSE 62–79; RESP 16–20; TEMP 36.4–37.1; O2SAT 94–98
[2021-05-30] MEDS: SODIUM CHLORIDE 0.45% 1,000 ML 50 ML IV CONT (06:16)
[2021-05-30] MEDS: LEVOTHYROXINE SODIUM 150 MCG TABLET PO (06:17)
[2021-05-30 09:31] LABS: Hematocrit 40.8 % (42.0-52.0); Hemoglobin 13.9 g/dL (14.0-18.0); Mean Corpuscular HGB Conc 34.1 g/dl (32-36); Mean Corpuscular Hemoglobin 31.3 pg (26-34); Mean Corpuscular Volume 91.9 fl (80-100); Mean Platelet Volume 8.9 fl (7.4-10.4); Platelet Count Result 213 k/mm3 (150-375); Red Blood Count 4.44 M/mm3 (4.6-6.20); Red Cell Distribution Width 12.5 % (11.5-14.5); White Blood Count 7.6 K/mm3 (4.5-10.0)
[2021-05-30 09:31] LABS: Glucose Point of Care 176 mg/dl (65-105)
[2021-05-30 09:54] LABS: Alanine Aminotransferase 27 U/L (4-50); Albumin Level 3.2 g/dL (3.5-5.1); Alkaline Phosphatase 156 U/L (38-126); Anion Gap 5 mmol/L (8-16); Aspartate Amino Transferase 45 U/L (17-59); Bilirubin,Total 0.6 mg/dL (0.2-1.3); Blood Urea Nitrogen 25 mg/dL (9-20); Calcium 9.1 mg/dL (8.4-10.2); Carbon Dioxide 27 mmol/L (22-30); Chloride 103 mmol/L (98-107); Estimated CRCL calculation 58 ml/min; Estimated Glomerular Filt Rate 54; Glucose 216 mg/dL (65-110); Magnesium 2.2 mg/dL (1.6-2.3); Potassium 4.2 mmol/L (3.4-5.0); Sodium 135 mmol/L (137-145)
[2021-05-30 09:57] LABS: Vancomycin Trough 15.4 ug/mL (10.0-20.0)
[2021-05-30] MEDS: INSULIN GLARGINE (*BKC) 100 UNITS/ML 30 UNITS SUB-Q (10:12)
[2021-05-30] MEDS: ROSUVASTATIN 10 MG TABLET 40 MG PO (10:15)
[2021-05-30] MEDS: ASPIRIN 325 MG TABLET PO (10:15)
[2021-05-30] MEDS: BRIMONIDINE TARTRATE 0.2% OP SOLN 5 ML BTL 1 DROP EACH EYE ×2 (10:15→21:16)
[2021-05-30] MEDS: BETHANECHOL CHLORIDE 10 MG TABLET PO ×3 (10:15→17:51)
[2021-05-30] MEDS: TIMOLOL MALEATE 0.5% OP SOLN 5 ML BOTTLE 1 DROP EACH EYE ×2 (10:15→21:16)
[2021-05-30] MEDS: TAMSULOSIN HCL 0.4 MG CAPSULE PO (10:16)
[2021-05-30] MEDS: PANTOPRAZOLE 40 MG TABLET PO (12:39)
[2021-05-30] MEDS: APIXABAN 5 MG TABLET PO ×2 (12:39→17:51)
[2021-05-30] MEDS: INSULIN ASPART (*BKC) 100 UNITS/ML SUB-Q ×2 (12:39→17:48)
[2021-05-30 12:41] LABS: Glucose Point of Care 305 mg/dl (65-105)
--- NOTE | 2021-05-30 13:06 | PCRCNOTE ---
HOME O2 EVAL COMPLETE, NO REQUIREMENTS
--- NOTE | 2021-05-30 15:06 | PM.IMPN ---
Progress Note: A&P Assessment and Plan (1) Sepsis: Code(s): A41.9 - Sepsis, unspecified organism Status: Acute Assessment and Plan: Continue vancomycin and cefepime and fluids 05/30/21 15:06 05/29 patient is 75-year-old male was transferred from outside facility with COVID positive, a DKA, elevated potassium and elevated tropes patient was initially treated in ICU with IV fluid, IV insulin, sodium bicarb, this helped improve his blood sugar and lower his potassium, is elevated tropes patient was seen by Cardiology suspect type 2 myocardial infarction secondary to DKA, cardiac echo showed mild systolic dysfunction with ejection fraction of 45%, for COVID patient was not treated with dexamethasone due to DKA and cannot take remdesivir elevated creatinine, patient also found to have pneumonia being treated with a cefepime and vancomycin patient remains clinically stable on room air and no fever, may discharge the patient tomorrow if remains clinically stable. still remains somewhat confused unable to provide detailed review of symptom. 05/30 Patient remains clinically stable he denies any complaint of cough or shortness breath, fever or chills, repeat chest x-ray showed persistent pneumonia and patient quite weak difficulty with ambulation but nursing staff, will continue present management, will continue to monitor the patient and have a PT OT evaluate and treat the patient further recommendation to follow. patient blood sugar remained close to normal (2) DKA (diabetic ketoacidosis): Code(s): E11.10 - Type 2 diabetes mellitus with ketoacidosis without coma Status: Acute Assessment and Plan: Continue to monitor sugars, accuchecks, SSI (3) Acute kidney injury superimposed on CKD: Code(s): N17.9 - Acute kidney failure, unspecified; N18.9 - Chronic kidney disease, unspecified Status: Acute Assessment and Plan: baseline creatinine is unknown but patient presented with creatinine of 4.26 which has improved 1.9 with fluids renal ultrasound CK was normal (4) COVID-19: Code(s): U07.1 - COVID-19 Status: Acute Assessment and Plan: currently on room air not a candidate for remdesivir due to his renal failure On isolation, Suportive care for COVID (5) Pneumonia: Code(s): J18.9 - Pneumonia, unspecified organism Status: Acute Assessment and Plan: On vancomycin and cefepime for bacterial PNEUMONIA (6) Nausea: Code(s): R11.0 - Nausea Status: Acute Assessment and Plan: p.r.n. Zofran (7) Atrial flutter: Code(s): I48.92 - Unspecified atrial flutter Status: Acute Assessment and Plan: patient has chronic AFib (8) Confusion: Code(s): R41.0 - Disorientation, unspecified Status: Acute Assessment and Plan: pressure patient has history of dementia. But is alert (9) Delirium: Code(s): R41.0 - Disorientation, unspecified Status: Resolved Assessment and Plan: Yesterday was very confused and agitated now more calm head CT was negative at outside hospital Additional Plan Subjective Date/time seen: 05/30/21 15:06 05/29 patient is 75-year-old male was transferred from outside facility with COVID positive, a DKA, elevated potassium and elevated tropes patient was initially treated in ICU with IV fluid, IV insulin, sodium bicarb, this helped improve his blood sugar and lower his potassium, is elevated tropes patient was seen by Cardiology suspect type 2 myocardial infarction secondary to DKA, cardiac echo showed mild systolic dysfunction with ejection fraction of 45%, for COVID patient was not treated with dexamethasone due to DKA and cannot take remdesivir elevated creatinine, patient also found to have pneumonia being treated with a cefepime and vancomycin patient remains clinically stable on room air and no fever, may discharge the patient tomorrow if re
[2021-05-30 17:17] LABS: Glucose Point of Care 404 mg/dl (65-105)
[2021-05-30] MEDS: INSULIN GLARGINE (*BKC) 100 UNITS/ML 20 UNITS SUB-Q (17:52)
[2021-05-30 21:56] LABS: Glucose Point of Care 271 mg/dl (65-105)
[2021-05-31 06:26] LABS: Hematocrit 38.9 % (42.0-52.0); Hemoglobin 13.1 g/dL (14.0-18.0); Mean Corpuscular HGB Conc 33.7 g/dl (32-36); Mean Corpuscular Hemoglobin 31.5 pg (26-34); Mean Corpuscular Volume 93.5 fl (80-100); Mean Platelet Volume 9.3 fl (7.4-10.4); Platelet Count Result 182 k/mm3 (150-375); Red Blood Count 4.16 M/mm3 (4.6-6.20); Red Cell Distribution Width 12.4 % (11.5-14.5); White Blood Count 7.4 K/mm3 (4.5-10.0)
[2021-05-31 06:38] LABS: Alanine Aminotransferase 24 U/L (4-50); Alkaline Phosphatase 143 U/L (38-126); Anion Gap 4 mmol/L (8-16); Aspartate Amino Transferase 30 U/L (17-59); Bilirubin,Total 0.8 mg/dL (0.2-1.3); Blood Urea Nitrogen 24 mg/dL (9-20); Calcium 8.8 mg/dL (8.4-10.2); Carbon Dioxide 28 mmol/L (22-30); Chloride 104 mmol/L (98-107); Estimated CRCL calculation 53 ml/min; Estimated Glomerular Filt Rate 49; Glucose 98 mg/dL (65-110); Potassium 3.9 mmol/L (3.4-5.0); Sodium 136 mmol/L (137-145)
[2021-05-31] MEDS: LEVOTHYROXINE SODIUM 150 MCG TABLET PO (06:44)
[2021-05-31 08:00] VITALS: BP 121/68; PULSE 65; RESP 16; TEMP 36.4; O2SAT 97
[2021-05-31 09:09] LABS: Glucose Point of Care 97 mg/dl (65-105)
[2021-05-31] MEDS: APIXABAN 5 MG TABLET PO (09:24)
[2021-05-31] MEDS: ASPIRIN 325 MG TABLET PO (09:24)
[2021-05-31] MEDS: TIMOLOL MALEATE 0.5% OP SOLN 5 ML BOTTLE 1 DROP EACH EYE (09:24)
[2021-05-31] MEDS: INSULIN GLARGINE (*BKC) 100 UNITS/ML 30 UNITS SUB-Q (09:24)
[2021-05-31] MEDS: TAMSULOSIN HCL 0.4 MG CAPSULE PO (09:24)
[2021-05-31] MEDS: BRIMONIDINE TARTRATE 0.2% OP SOLN 5 ML BTL 1 DROP EACH EYE (09:25)
[2021-05-31] MEDS: BETHANECHOL CHLORIDE 10 MG TABLET PO (09:25)
[2021-05-31] MEDS: PANTOPRAZOLE 40 MG TABLET PO (09:25)
[2021-05-31] MEDS: ROSUVASTATIN 10 MG TABLET 40 MG PO (09:25)
--- NOTE | 2021-05-31 10:17 | PM.DS ---
DS: Admitting Diagnosis Discharge Date 05/31/2021 Admitting Diagnosis DKA DS: Discharge Diagnosis Discharge Diagnosis (1) Sepsis: Code(s): A41.9 - Sepsis, unspecified organism Status: Acute Assessment and Plan: Continue vancomycin and cefepime and fluids 05/30/21 15:06 05/29 patient is 75-year-old male was transferred from outside facility with COVID positive, a DKA, elevated potassium and elevated tropes patient was initially treated in ICU with IV fluid, IV insulin, sodium bicarb, this helped improve his blood sugar and lower his potassium, is elevated tropes patient was seen by Cardiology suspect type 2 myocardial infarction secondary to DKA, cardiac echo showed mild systolic dysfunction with ejection fraction of 45%, for COVID patient was not treated with dexamethasone due to DKA and cannot take remdesivir elevated creatinine, patient also found to have pneumonia being treated with a cefepime and vancomycin patient remains clinically stable on room air and no fever, may discharge the patient tomorrow if remains clinically stable. still remains somewhat confused unable to provide detailed review of symptom. 05/30 Patient remains clinically stable he denies any complaint of cough or shortness breath, fever or chills, repeat chest x-ray showed persistent pneumonia and patient quite weak difficulty with ambulation but nursing staff, will continue present management, will continue to monitor the patient and have a PT OT evaluate and treat the patient further recommendation to follow. patient blood sugar remained close to normal (2) DKA (diabetic ketoacidosis): Code(s): E11.10 - Type 2 diabetes mellitus with ketoacidosis without coma Status: Acute Assessment and Plan: Continue to monitor sugars, accuchecks, SSI (3) Acute kidney injury superimposed on CKD: Code(s): N17.9 - Acute kidney failure, unspecified; N18.9 - Chronic kidney disease, unspecified Status: Acute Assessment and Plan: baseline creatinine is unknown but patient presented with creatinine of 4.26 which has improved 1.9 with fluids renal ultrasound CK was normal (4) COVID-19: Code(s): U07.1 - COVID-19 Status: Acute Assessment and Plan: currently on room air not a candidate for remdesivir due to his renal failure On isolation, Suportive care for COVID (5) Pneumonia: Code(s): J18.9 - Pneumonia, unspecified organism Status: Acute Assessment and Plan: On vancomycin and cefepime for bacterial PNEUMONIA (6) Nausea: Code(s): R11.0 - Nausea Status: Acute Assessment and Plan: p.rrose marie Caalan (7) Atrial flutter: Code(s): I48.92 - Unspecified atrial flutter Status: Acute Assessment and Plan: patient has chronic AFib (8) Confusion: Code(s): R41.0 - Disorientation, unspecified Status: Acute Assessment and Plan: pressure patient has history of dementia. But is alert (9) Delirium: Code(s): R41.0 - Disorientation, unspecified Status: Resolved Assessment and Plan: Yesterday was very confused and agitated now more calm head CT was negative at outside hospital DS: Summary Hospital Course Reason for hospitalization: Chief Complaint: Transferred From [facility] for DKA, sepsis Narrative: History was taken from the patient and transfer notes. According to the transfer notes, patient and patient family, patient has received his COVID vaccination in October and has recently be diagnosed with COVID and was getting close observation as an outpatient at home. No medication was given for this COVID exposure. Patient went to [place] emergency room yesterday with complaints of having high sugar. Patient was diagnosed with sepsis and DKA. Patient was given IV antibiotics vancomycin and IV fluid bolus was given. Patient was also found to be in having acute renal insufficiency. Florentino
[2021-05-31 12:04] LABS: Glucose Point of Care 184 mg/dl (65-105)
--- NOTE | 2021-05-31 15:14 | PC.NURSE ---
Patient was assisted with dressing to be discharged home by 2 [facility].
== END 2021-05-31 15:05 | disposition home health service (06) | DRG 871 ==
LOC: ANHICU 13:50 → ANHIMU 05-29 13:20 → ANH3MEDSUR 05-30 15:21 → ANHICU 06-04 12:02 → ANHIMU 06-04 12:02
PROVIDERS: Admitting Provider Internal Medicine; PCP Internal Medicine; Visit Provider Family Medicine
DX: A41.9 Sepsis, unspecified organism (principal); E11.10 Type 2 diabetes mellitus with ketoacidosis without coma; U07.1 COVID-19; J15.9 Unspecified bacterial pneumonia; I21.A1 Myocardial infarction type 2; N17.9 Acute kidney failure, unspecified; I48.20 Chronic atrial fibrillation, unspecified; I48.92 Unspecified atrial flutter; R77.8 Other specified abnormalities of plasma proteins; R11.0 Nausea; E11.22 Type 2 diabetes mellitus with diabetic chronic kidney disease; N18.9 Chronic kidney disease, unspecified; R41.0 Disorientation, unspecified; Z79.01 Long term (current) use of anticoagulants; Z79.4 Long term (current) use of insulin; Z87.891 Personal history of nicotine dependence
CPT/HCPCS: 36415; 71045; 76775; 80048; 80053; 80202; 81001; 82140; 82948; 83036; 83605; 83735; 84100; 84443; 84484; 85025; 85027; 93306; 94618; 97110; 97116; 97161; 97165; 97530; 97535; 99199; A9270; J0692; J1815; J2060; J2405; J3370

== ENCOUNTER 2024-05-12 10:30 | Outpatient (CLI) | payer MEDICARE, SELFPAY ==
--- NOTE | ~2024-05-12 | XR_ITS ---
EXAMINATION: XR foot LT min 3V DATE: 05/12/2024 11:12 INDICATION: Left great toe ulcer. TECHNIQUE: 3 views of left foot were obtained. COMPARISON: None. FINDINGS: Bone alignment is normal. There are erosions of tuft of first distal phalanx. There is a no ndisplaced pathologic fracture of tuft of first distal phalanx. 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 There is an enthesophyte at plantar aspect of calcaneal tuberosity. IMPRESSION: 1. 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 Reviewed, dictated and finalized at location A.
== END 2024-05-12 10:31 | disposition home or self-care (01) ==
LOC: ANHIMG 10:43
PROVIDERS: Visit Provider Podiatrist Foot & Ankle Surgery
DX: M86.8X7 Other osteomyelitis, ankle and foot (principal)
CPT/HCPCS: 73630

== ENCOUNTER 2024-05-25 09:51 | Outpatient (CLI) | payer MEDICARE, SELFPAY ==
[2024-05-25 10:40] LABS: Anion Gap 8 mmol/L (4-12); Blood Urea Nitrogen 27 mg/dL (9-20); Calcium 9.3 mg/dL (8.4-10.2); Carbon Dioxide 29 mmol/L (22-30); Chloride 100 mmol/L (98-107); Estimated Glomerular Filt Rate > 60; Glucose 171 mg/dL (65-110); Potassium 4.3 mmol/L (3.4-5.0); Sodium 137 mmol/L (137-145)
[2024-05-25 10:44] LABS: INR 1.3; Prothrombin Time 16.8 Seconds (11.1-14.7)
[2024-05-25 10:45] LABS: Partial Thromboplastin Time 38.5 Seconds (22.3-36.8)
== END 2024-05-25 09:52 | disposition home or self-care (01) ==
LOC: ANHSURGERY 09:58
PROVIDERS: Anesthesiology; Visit Provider Podiatrist Foot & Ankle Surgery
DX: E11.9 Type 2 diabetes mellitus without complications (principal); N17.9 Acute kidney failure, unspecified; N18.9 Chronic kidney disease, unspecified
CPT/HCPCS: 36415; 80048; 85610; 85730

== ENCOUNTER 2024-05-28 00:37 | Day surgery (SDC) | payer MEDICARE, SELFPAY ==
[2024-05-24 09:31] VITALS: BMI 34.0
--- NOTE | 2024-05-24 09:48 | PC.NURSE ---
Report to the Outpatient Waiting Room, entrance under the green pavilion located off [facility], at time __11:00am___on date _05/28/24 . Planned Procedure Time: __1:00pm .? Time changes happen often and if your time is changed the preop area will call you the afternoon before. - You and your visitor will be asked to self-screen and do not enter if you have any COVID symptoms. Please call surgeon if you need to reschedule. - A mask is optional within the hospital at this time. Patients may have clear liquids (water, carbonated beverages, clear teas, apple juice) until 3 hours prior to surgery with a maximum of 20 ounces. - No food from midnight until time of surgery and no smoking ( 10:00am) Take only the following medications with a SIP of water on the morning of surgery: ____Coreg, Levothyroxine, _1/2 am insulin DO NOT STOP ANY OF YOUR OTHER PRESCRIPTION MEDICATIONS PRIOR TO SURGERY EXCEPT THE FOLLOWING Medications to discontinue per physician Eliquis Hold for 48 hrs before surgery per Ricardo Date to take last dose 05/25/24 . Hold all vitamins, supplements, herbs, and probiotic 3 days prior per Anesthesia, Date to take last dose 05/24/24 Please no make-up, nail bahraini, hairspray, perfume, deodorant, or body powder the day of surgery.? No jewelry (including any body piercings) or valuables the day of surgery, leave them at home.? Please take a shower or bath the night before, or the morning of, surgery with an antibacterial soap.? Wear comfortable, loose fitting clothing.? - Jewelry must be removed prior to entering the operating room.? Rings and piercings that are not removed may be cut off. - The hospital will not accept responsibility for valuables.? - Please leave all valuables, including medications, at home the day of surgery. If you are going home after surgery, a licensed driver's education instructor must drive you home.? - NO public transportation without another adult if you receive anesthesia. - We recommend that an adult stay with you for 24 hours following discharge. - We also recommend that you do not drive, make important decision, drink alcoholic beverages, or take any drugs that were not prescribed by your health care provider for at least 24 hours after your discharge time. Follow any additional instructions given to you from your surgeon. Telephone instructions given to _patient and asked if any additional questions and then verbalized understanding. Patient advised to call surgeon office or pre surgery nurse liaison [phone] if any additional questions.
--- NOTE | 2024-05-28 07:16 | WPDHPUPDATE1 ---
History and Physical Update Update Date/Time: 05/28/24 07:16 History and Physical has been reviewed, including an updated exam of the patient. There are NO changes in the patient's condition. Risks, benefits, and alternatives have been discussed and questions answered. Patient agrees to proceed with procedure.
[2024-05-28] MEDS: LACTATED RINGERS 1,000 ML 30 ML IV CONT (11:43)
[2024-05-28 11:49] LABS: Glucose Point of Care 141 mg/dl (65-105)
[2024-05-28 11:54] VITALS: BP 170/71; PULSE 63; RESP 16; TEMP 36.8; O2SAT 99
[2024-05-28 12:20] LABS: INR 1.1; Prothrombin Time 14.3 Seconds (11.1-14.7)
[2024-05-28 12:21] LABS: Partial Thromboplastin Time 33.1 Seconds (22.3-36.8)
--- NOTE | 2024-05-28 13:31 | WPDANESEPPF ---
Anes - Initial Pre Proc Eval Procedure: Operation Date: 05/28/24 13:00 Proposed Procedures p Partial Amputation Left Hallux - Gerhard Silva Jr., DPM Date/Time: 05/28/24 13:31 Surgeon: Gerhard Silva Jr., DPM Pre Op Diagnosis: osteomyelitis left hallux Patient Data Age: 78 Gender: M Height: 1.88 m Weight: 119.7 kg Last Vital Signs Temp 98.3 F 05/28/24 11:54 Pulse 63 05/28/24 11:54 Resp 16 05/28/24 11:54 BP 170/71 H 05/28/24 11:54 Pulse Ox 99 05/28/24 11:54 O2 Del Method Room Air 05/28/24 11:54 Allergies Allergy/AdvReac Type Severity Reaction Status Date / Time No Known Allergies Allergy Verified 05/28/24 11:14 Home Medications Medication Instructions Recorded Confirmed Type apixaban 5 mg tablet (Eliquis) 5 mg PO BID 05/27/21 05/24/24 History bethanechol chloride 10 mg tablet 10 mg PO TID 05/27/21 05/24/24 History brimonidine 0.2 %-timolol 0.5 % 1 drp EACH EYE Q12H 05/27/21 05/24/24 History eye drops (Combigan) carvedilol 3.125 mg tablet (Coreg) 3.125 mg PO Q12H 05/27/21 05/24/24 History empagliflozin 10 mg tablet 10 mg PO DAILY 05/27/21 05/24/24 History (Jardiance) furosemide 20 mg tablet (Lasix) 20 mg PO DAILY 05/27/21 05/24/24 History levothyroxine 150 mcg tablet 150 mcg PO DAILY 05/27/21 05/24/24 History lisinopril 5 mg tablet 5 mg PO DAILY 05/27/21 05/24/24 History pantoprazole 40 mg tablet,delayed 40 mg PO QAM 05/27/21 05/24/24 History release (Protonix) rosuvastatin 40 mg tablet (Crestor) 40 mg PO DAILY 05/27/21 05/24/24 History tamsulosin 0.4 mg capsule 0.4 mg PO DAILY 05/27/21 05/24/24 History doxycycline hyclate 100 mg capsule 100 mg PO BID #14 caps 05/31/21 05/24/24 Rx insulin glargine 100 unit/mL 31 unit subcut DAILY 05/31/21 05/24/24 History subcutaneous solution (Lantus U-100 Insulin) timolol maleate 0.5 % eye drops 1 drp EACH EYE Q12HR #5 mL 05/31/21 05/24/24 Rx insulin glargine-yfgn 100 unit/mL 31 unit subcut DAILY 05/24/24 05/24/24 History (3 mL) subcutaneous pen (Semglee (insulin glargine-yfgn) Pen) linaclotide 72 mcg capsule 72 mcg PO DAILY 05/24/24 05/24/24 History (Linzess) Laboratory Tests 05/28/24 05/28/24 11:17 11:45 PT 14.3 Seconds (11.1-14.7) INR 1.1 APTT 33.1 Seconds (22.3-36.8) POC Capillary Glucose 141 H mg/dl (65-105) Patient hx anesthesia problems: none Family hx anesthesia problems: none Results Review: All pre-operative results and documents have been reviewed as part of the pre-operative evaluation. [facility] Past Medical History Medical History Atrial flutter Diabetes mellitus DKA (diabetic ketoacidosis) Social History Social History Smoking packs per day: 0.5 Smoking cigarettes per day: 10.0 Years smoked: 5 Smoking pack-years: 2.50 Smoking status: Former smoker Smoking end date: 04/26/76 Alcohol intake: never Substance use: never Living arrangements: alone Spiritual care concerns: No Anes - Eval Final PreProcedure Day of Procedure 05/28/24 13:31 Patient weight: obese Heart: regular rate and rhythm Lungs: clear to auscultation Airway: Mallampati scale class II Neurological: alert and oriented Last oral intake: >/= 8 hours ASA classification: IV Emergent: no Anesthetic plan: proceed Anesthesia type and monitoring: general GIVS and standard monitoring Results Review: All pre-operative results and documents have been reviewed as part of the pre-operative evaluation. ECHO 2020 w LVEF 40%. Informed Consent: The patient's anesthetic plan and its attendant risks and benefits were discussed with the patient/family/POA. Questions were solicited and answers provided to the satisfaction of the patient/family/POA.
[2024-05-28] MEDS: ceFAZolin 2 GM/D5W 50 ML 2 GM/50 ML BAG IVPB (13:37)
[2024-05-28] MEDS: LIDOCAINE HCL 2% PF INJ 5 ML VIAL 10 ML INFILTRATE (13:54)
[2024-05-28 14:17] VITALS: BP 133/73; PULSE 70; RESP 16; O2SAT 100
--- NOTE | 2024-05-28 14:42 | W.PM.PROC2 ---
Procedure Note - Detailed Date of Procedure 05/28/24 Pre-op Diagnosis Osteomyelitis left hallux Post-op Diagnosis Same Procedure Performed Partial amputation left hallux Surgeon Gerhard Silva Jr., DPM Anesthesia MAC and Local Indications Chronic osteomyelitis left hallux Xrays showing osteolysis and pathological fracturing to the distal phalanx of the hallux where he has an ulceration. Description of Procedure Under mild sedation, the patient was brought to the operating room, placed on the operating table in the supine position. A pneumatic ankle tourniquet was placed about the patient's ankle. Following general anesthesia, I performed a proximal Jj Block about the proximal first metatarsal with 10ccs of 2% Lidocaine plain. The foot was then scrubbed, prepped, and draped in the usual aseptic manner. An Esmarch bandage was then used to examine the patient's foot and pneumatic ankle tourniquet was then inflated. Surgery began in the following manner. Attention was directed to the distal aspect of the hallux where the patient has a full thickness ulcer probing to bone. Two convex converging incisions were made about the interphalangeal joint of the hallux with the plantar flap extending slightly distal. The incision was continued deep down through the subcutaneous tissues using sharp and blunt dissection. All bleeders were cauterized as necessary. The distal hallux was disarticulated at the interphalangeal joint and sent for gross and histopathology. The remaining bone and tissue was healthy and bleeding. I used 3.0 Vicryl stitch for arterial ligation. The wound site was then flushed with copious amounts of sterile saline. Next, the subcutaneous structures were reapproximated with 4-0 Vicryl. Next, the skin was reapproximated and coapted utilizing 4-0 Prolene in simple interrupted suture fashion technique. Upon completion of the procedure, the incision was dressed with Adaptic, 4 x 4's, 3 rolls of Kerlix, and Coban. The pneumatic ankle tourniquet was then deflated and a prompt hyperemic response noted to all remaining digits of the foot and the distal aspect of the stump of the partially amputated hallux. A surgical shoe was then applied. The patient did very well with the procedure and the anesthesia. The patient was transferred to the recovery room with vital signs stable and vascular status intact to all remaining toes of the affected foot. Following a period of postoperative monitoring, the patient will be discharged home on the following written and oral postoperative instructions: 1. Keep the dressing clean, dry, and intact. Use a cast protector bag with showers. 2. The patient should use a surgical shoe for ambulation postoperatively. 3. The patient should be on bedrest with bathroom privileges and elevate the affected foot when at rest. 4. The patient to contact Dr. Silva for all postop care and if any problems arise. 5. Prescriptions were written for Percocet 5/325 dispensed 40 to be taken 1 p.o. q.4 to 6 hours as needed for severe pain. Estimated Blood Loss 10 Drains No Packing No Pathology Yes (Distal left hallux amputation sent for gross and histopathology.) Complications No immediate complications Condition Stable
[2024-05-28 14:45] VITALS: BP 116/64; PULSE 67; RESP 16
[2024-05-28 14:50] LABS: Glucose Point of Care 118 mg/dl (65-105)
[2024-05-28 15:15] VITALS: BP 141/66; PULSE 71; RESP 16
[2024-05-28 15:25] VITALS: BP 151/86; PULSE 63; RESP 18
== END 2024-05-28 15:45 | disposition home or self-care (01) ==
PROVIDERS: Visit Provider Podiatrist Foot & Ankle Surgery
PROC: (CPT 28825; principal; 2024-05-28 13:00)
DX: M86.172 Other acute osteomyelitis, left ankle and foot (principal); E11.49 Type 2 diabetes mellitus with other diabetic neurological complication; I10 Essential (primary) hypertension; I48.91 Unspecified atrial fibrillation; Z87.891 Personal history of nicotine dependence
CPT/HCPCS: 28825; 36415; 82948; 85610; 85730; 88305; 88311; J0690; J2704; J7120